=== PATIENT | male | born 2000 | race Caucasian/White ===

== ENCOUNTER 2024-07-25 20:19 | Emergency (ER) | payer SELFPAY ==
[~2024-07-25 20:19] MED LIST: Iopamidol 300 61% 100 ML VIAL FS ONE
[2024-07-25] MEDS ORDERED: Ondansetron PF 4 MG/2 ML Vial ONE (22:20)
[2024-07-25 22:59] LABS: #Basophils 0.04 10x3/uL (0.0-0.2); #Eosinophils Less than 0.03 10x3/uL (0.0-0.5); #Monocytes 0.52 10x3/uL (0.0-1.1); #Neutrophils 8.32 10x3/uL (1.5-8.4); %Basophils 0.4 % (0.0-2.0); %Eosinophils 0.1 % (0.0-6.0); %Lymphocytes 11.7 % (18.0-47.0); %Monocytes 5.2 % (0.0-10.0); %Neutrophils 82.4 % (40.0-75.0); Hematocrit 39.8 % (38.8-50.0); Hemoglobin 14.9 g/dL (13.5-17.5); Mean Corpuscular HGB CONC 37.4 g/dL (32.0-36.0); Mean Corpuscular Hemoglobin 32.6 pg (27.0-33.0); Mean Corpuscular Volume 87.1 fL (81.2-95.1); Mean Platelet Volume 9.3 fL (7.4-10.4); Platelet Count 441 10x3/uL (150-450); RBC Distribution Width 11.9 % (11.5-14.5); Red Blood Cell (RBC) Count 4.57 10x6/uL (4.32-5.72); White Blood Cell (WBC) Count 10.09 10x3/uL (3.5-10.5)
[2024-07-25 23:21] LABS: ALT (SGPT) 12 U/L (Less than 45); AST (SGOT) 25 U/L (11-34); Albumin 5.3 g/dL (3.1-4.5); Alkaline Phosphatase 59 U/L (40-110); Anion Gap 20 mmol/L (10-20); BUN (Urea Nitrogen) 12 mg/dL (8.9-20.6); Bilirubin, Total 1.8 mg/dL (0.3-1.2); Calc. Creatinine Clearance 0 mL/min (70-130); Calcium 10.4 mg/dL (7.8-10.44); Carbon Dioxide 22 mmol/L (22-29); Chloride 100 mmol/L (98-107); Estimated GFR 91; Globulin 3.1 g/dL (2.4-3.5); Glucose 105 mg/dL (70-105); Lipase 12 U/L (8-78); Protein, Total 8.4 g/dL (6.0-8.3); Sodium 138 mmol/L (136-145)
[2024-07-25 23:40] LABS: Bilirubin Neg (Negative); Blood, Urine Negative (Negative); Clarity Clear (Clear); Glucose, Urine (Dipstick) Normal (Negative); Ketone, Urine 150 mg/dL (Negative); Leukocyte Negative (Negative); Nitrite Negative (Negative); Protein, Urine (Dipstick) 30 mg/dl (Neg-Trace); Specific Gravity, Urine 1.005 (1.005-1.030)
[2024-07-25 23:58] LABS: Bacteria/HPF Rare-Few HPF (None Seen); CAUTI Indications for Culture Pelvic or flank pain; RBC/HPF None Seen HPF (0-3); Squamous Epithelial 0-3 HPF (0-3); WBC/HPF 0-3 HPF (0-3)
[2024-07-25 23:59] LABS: Urine Culture Reflex No No
== END 2024-07-26 00:44 | disposition home or self-care (01) ==
LOC: CSHERS 20:19
DX: R11.2 Nausea with vomiting, unspecified (principal); R10.12 Left upper quadrant pain; F17.290 Nicotine dependence, other tobacco product, uncomplicated
CPT/HCPCS: 74177; 80053; 81001; 83690; 85025; 96374; J2405; Q9967

== ENCOUNTER 2024-07-28 11:39 | Emergency (ER) | payer SELFPAY ==
[2024-07-28] MEDS ORDERED: Ondansetron PF 4 MG/2 ML Vial ONE (14:03)
[2024-07-28 14:52] LABS: #Basophils 0.03 10x3/uL (0.0-0.2); #Eosinophils 0.07 10x3/uL (0.0-0.5); #Monocytes 0.38 10x3/uL (0.0-1.1); #Neutrophils 7.09 10x3/uL (1.5-8.4); %Basophils 0.3 % (0.0-2.0); %Eosinophils 0.8 % (0.0-6.0); %Lymphocytes 12.5 % (18.0-47.0); %Monocytes 4.4 % (0.0-10.0); %Neutrophils 81.8 % (40.0-75.0); Hematocrit 39.7 % (38.8-50.0); Hemoglobin 14.5 g/dL (13.5-17.5); Mean Corpuscular HGB CONC 36.5 g/dL (32.0-36.0); Mean Corpuscular Hemoglobin 32.2 pg (27.0-33.0); Mean Corpuscular Volume 88.2 fL (81.2-95.1); Mean Platelet Volume 9.1 fL (7.4-10.4); Platelet Count 402 10x3/uL (150-450); White Blood Cell (WBC) Count 8.67 10x3/uL (3.5-10.5)
[2024-07-28 14:59] LABS: ALT (SGPT) 10 U/L (Less than 45); AST (SGOT) 23 U/L (11-34); Albumin 4.9 g/dL (3.1-4.5); Alkaline Phosphatase 45 U/L (40-110); Anion Gap 14 mmol/L (10-20); BUN (Urea Nitrogen) 6 mg/dL (8.9-20.6); Bilirubin, Total 1.8 mg/dL (0.3-1.2); Calc. Creatinine Clearance 0 mL/min (70-130); Calcium 9.3 mg/dL (7.8-10.44); Carbon Dioxide 23 mmol/L (22-29); Chloride 105 mmol/L (98-107); Estimated GFR 93; Globulin 2.8 g/dL (2.4-3.5); Glucose 89 mg/dL (70-105); Lipase 9 U/L (8-78); Potassium 3.9 mmol/L (3.5-5.1); Protein, Total 7.7 g/dL (6.0-8.3); Sodium 138 mmol/L (136-145)
[2024-07-28 15:27] LABS: Bilirubin Neg (Negative); Blood, Urine Negative (Negative); Clarity Clear (Clear); Glucose, Urine (Dipstick) Normal (Negative); Ketone, Urine 15 mg/dL (Negative); Leukocyte Negative (Negative); Nitrite Negative (Negative); Protein, Urine (Dipstick) Negative (Neg-Trace)
[2024-07-28 15:45] LABS: Bacteria/HPF None Seen HPF (None Seen); CAUTI Indications for Culture Pelvic or flank pain; RBC/HPF None Seen HPF (0-3); Squamous Epithelial None Seen HPF (0-3); Urine Culture Reflex No No; WBC/HPF None Seen HPF (0-3)
== END 2024-07-28 16:20 | disposition home or self-care (01) ==
LOC: CSHERS 11:39
DX: R11.2 Nausea with vomiting, unspecified (principal); F17.290 Nicotine dependence, other tobacco product, uncomplicated
CPT/HCPCS: 36415; 80053; 81001; 83690; 85025; 96374; J2405